=== PATIENT | female | born 1950 | race Caucasian/White ===

== ENCOUNTER 2024-11-05 13:48 | Emergency (ER) | payer MEDICARE, OTHER, SELFPAY ==
--- NOTE | 2024-11-05 15:33 | ED.MUSCINJ ---
HPI-Injury
General
Chief Complaint: Musculo-Skeletal Complaint
Source: patient
Exam Limitations: none
Time Seen by Provider: 11/05/24 14:29
Nursing documentation reviewed up to this point in time: agreed with
History of Present Illness-Injury
Is this injury a work related problem?: No
Is pt an associate of [facility]/[place]?: No
Initial Injury comments:
Patient states she was attempting to carry bags and open house door. Tried to push door open with right leg and felt something pop in right hip. States she did not fall. Since then she reports pain to right alteral hip. Incident occurred last
PM. States she had a previous event approx 16 years ago while dancing. Experienced the same pain. [place] like hip popped out and then went back in on own. Brought to ED by spouse for eval. States pain is better today. Able to ambulate without
assistance
Past History
Past History
ED Past Medical History: None and Other (GERD, hypothyroidism)
Social History
Tobacco: Non-smoker
Alcohol: None
Family History
Family History: Negative Diabetes, Hypertension or CAD
Review of Systems
Review of Systems
Allergies reviewed?: Yes
All Other Systems: ROS reviewed and negative except as documented in HPI and ROS
Constitutional: Reports no symptoms
EENT: Reports no symptoms
Respiratory: Reports no symptoms
Cardiac: Reports no symptoms
ABD/GI: Reports no symptoms
Musculoskeletal: Reports joint pain (Pain to right lateral hip)
Skin: Reports no symptoms
Neurological: Reports no symptoms
Psychiatric: Reports no symptoms
Musculoskeletal Injury Exam
Musculoskeletal Injury Exam
Right Lateral Hip:
Pain with Movement?: Moderate
Tender to palpation?: Moderate
Soft tissue swelling?: None
External deformity and angulation?: None
Joint effusion?: None
Contusion?: None
Hematoma-local bleeding into tissue?: None
Strain- Sprain- Tear (Connective tissue injury)?: Moderate
Crepitus with movement?: No
Joint instability?: No
Malalignment/deformity?: No
Range of motion: Full
Distal skin color and temperature: normal-warm & good color
Capillary Refill: normal
Normal distal neurovascular exam?: Yes
Phy Exam
General Physical Exam
General Presentation: well appearing and no apparent distress
General age: appears stated age
General Skin: warm and dry
General Habitus: normal
General Mental: alert
Musculoskeletal Exam
Musculoskeletal Exam: full ROM and neuro vasc intact
Skin Exam
Skin Exam: normal color, warm/dry and no rash
Psychiatric Exam
Psychiatric Exam: normal mood/affect
Injury Course
Orders/Labs/Results
Orders:
Orders
11/05/24 14:04
Hip, Right 2-3 Views [CR Hip - RT w/wo Pel 2-3 Vw*] Urgent
Comment:
Reason For Exam: pain
Include a pelvis x-ray?: Yes
11/05/24 15:31
Knee Immobilizer Right-Treatme ONCE
*Radiology
Radiology exam reviewed: radiology read reviewed
*Pulse Oximetry
Patient hypoxic: no
*Critical Care Note
Total Time (30-74mins, 75-104mins- exclusive of procedures): Not Applicable
Update Note
Update Note:
Xray reviewed. No evidence of fracture/dislocation. She has full ROM to RLE, equal strength bilaterally. Ambulating without assistance. Will place in knee immobilizer for leg stability. She is discharged home and will follow up with orthopedics.
ED Attending Note
-
Portions of this chart may have been created with voice recognition software.� Occasional wrong word or��sound alike� substitutions may have occurred due to the inherent limitations of voice recognition software.
Discharge Plan
Departure
Patient Disposition: Home (Routine Discharge)
Date of Disposition: 11/05/24
Time of Disposition: 15:31
Patient with high blood pressure during this ER visit?: No
Condition: Good
Covid-19: Not Applicable
Discharge Problem:
Hip joint pain, Hip sprain
Instructions: Sprain (DC), Ibuprofen, Using Cold for Pain
Referrals:
Sergio Shanks MD [Active] - Next open appointment
Maribel Barrientos NP [Family Provider] -
Interventions
Interventions:
*Risk Screen - Suicide Last Done: 11/05/24 13:58
*General Assessment Last Done: 11/05/24 13:58
*Neglect/Abuse Screening Last Done: 11/05/24 13:58
ED- Fall Risk Assessment Last Done: 11/05/24 15:22
*ED COVID-19 Vaccine History Last Done: 11/05/24 13:58
ED-Musculoskeletal Assessment Last Done: 11/05/24 15:22
Discharge Date and Time
Print Language: BHUTANESE
[2024-11-05 15:54] VITALS: BP 148/63
== END 2024-11-05 16:03 | disposition home or self-care (01) ==
LOC: EMR 13:48
PROVIDERS: EMERGENCY PHYSICIAN Emergency Medicine; FAMILY PHYSICIAN Internal Medicine
DX: S73.101A Unspecified sprain of right hip, initial encounter (principal); X58.XXXA Exposure to other specified factors, initial encounter; E03.9 Hypothyroidism, unspecified; K21.9 Gastro-esophageal reflux disease without esophagitis
CPT/HCPCS: 99283; 73502

== ENCOUNTER → 2024-11-29 10:03 | Outpatient (REF) | payer MEDICARE, OTHER, SELFPAY | LOC: MRI 3T 10:03 | PROVIDERS: ATTENDING PHYSICIAN Orthopaedic Surgery; FAMILY PHYSICIAN Internal Medicine | DX: M25.551 Pain in right hip (principal) | CPT/HCPCS: 73721 ==

== ENCOUNTER → 2024-12-02 08:24 | Outpatient (REF) | payer MEDICARE, OTHER, SELFPAY | LOC: WDC 08:24 | PROVIDERS: ATTENDING PHYSICIAN Internal Medicine | DX: Z12.31 Encounter for screening mammogram for malignant neoplasm of breast (principal) | CPT/HCPCS: 77063; 77067 ==

== ENCOUNTER 2025-01-08 10:19 | Outpatient (RCR) | payer MEDICARE, OTHER, SELFPAY | END 2025-01-08 23:59 | disposition home or self-care (01) | LOC: RPT 10:19 | PROVIDERS: ATTENDING PHYSICIAN Orthopaedic Surgery; FAMILY PHYSICIAN Internal Medicine | DX: S76.011D Strain of muscle, fascia and tendon of right hip, subsequent encounter (principal); Z73.6 Limitation of activities due to disability; R26.2 Difficulty in walking, not elsewhere classified; M62.81 Muscle weakness (generalized); W18.39XD Other fall on same level, subsequent encounter | CPT/HCPCS: 97110; 97162 ==

== ENCOUNTER → 2025-06-15 12:00 | Outpatient (REF) | payer MEDICARE, OTHER, SELFPAY | LOC: DHSLP 12:00 | PROVIDERS: ATTENDING PHYSICIAN Internal Medicine | DX: G47.33 Obstructive sleep apnea (adult) (pediatric) (principal) | CPT/HCPCS: 95800 ==